=== PATIENT | female | born 1990 | race Caucasian/White ===

== ENCOUNTER 2025-01-03 10:00 | Emergency (ER) | payer OTHER, SELFPAY ==
--- OUTSIDE RECORDS SUMMARY | 2025-01-03 10:03 | XMS_ITS | Clinical Summary ---
Author Organization [facility] Address [address] [place] [id number] Care Team Providers Care Finance And Administration Manager Name Role Phone Josefina Gabriel MD Primary Care Provider Allergies Active Allergy Reactions Criticality Noted Date Comments Cat Dander Runny Nose,Itching 10/05/2020 Dog Dander Itching 10/05/2020 Medications hydrOXYzine HCL (ATARAX) 25 mg tabletIndication s:Anxiety Take 1-2 Tablets (25-50 mg) by mouth every 6 hours if needed for Itching. 25 Tablet 1 4 Active albuterol HFA (PRO-AIR; VENTOLIN; PROVENTIL) 90 mcg/actuation inhalerIndicatio ns:Asthma, unspecified asthma severity, unspecified whether complicated, unspecified whether persistent (HC) Inhale 1-2 Puffs by mouth every 4 hours while awake. 3 Each 1 4 Active fluticasone (50 mcg per actuation) nasal solution (FLONASE)Indicat ions:Allergic rhinitis, unspecified seasonality, unspecified trigger Inhale 1 [place] in both nostrils once daily. 16 g 3 4 Active fluticasone propion-salmeter oL (Wixela Inhub) 250-50 mcg/Dose diskus inhalerIndicatio ns:Asthma, unspecified asthma severity, unspecified whether complicated, unspecified whether persistent (HC) Inhale 1 Puff by mouth two times daily. 180 Each 3 4 Active sertraline 50 mg tabletIndication s:Acute adjustment disorder with mixed anxiety and depressed mood Take 1 Tablet (50 mg) by mouth once daily in the morning. 93 Tablet 3 5 Active Active Problems Problem Noted Date Diagnosed Date Cervical high risk HPV (human papillomavirus) te st positive 01/24/2019 Overview (09/15/2024): 01/2019 NIL/HPV+ 04/2021 NIL/HPV+ (16/18 negative) 05/2021 [place]: Negative 08/2024 NIL/HPV +, HPV 16/18 negative Provider Plan: Repeat pap in 1 year. If remains HPV + or abnormal cytology, then colposcopy. Unspecified asthma(493.90) 03/10/2007 Allergic rhinitis, cause unspecified 03/10/2007 Encounters Date Type Department Care Team Description 01/03/2025 8:30 AM CDT Telemedicine [facility] [address] [place] [phone] Lizabeth Rascon NP Telehealth (Swollen lymph nodes, acid reflux. Not able to eat or drink much/No vitals taken -virtual visit./) 01/03/2025 Travel 11/20/2024 7:00 AM CDT Office Visit [facility] [address] [place] [address] Josefina Gabriel MD Medication Management 11/20/2024 Travel 11/10/2024 2:00 PM CDT Telemedicine [facility] [address] [place] [address] Laura Light AUTO DAMAGE ESTIMATOR Telehealth; Trmt Plan (Treatment planning via telehealth) 10/20/2024 Refill [facility] [address] [place] [address] Josefina Gabriel MD Refill Request (Sertraline) from Last 3 Months Immunizations Immunization Administration Dates Next Due DTP 04/17/1994, 2,08/15/1990,06/06/1990, 01/28/1990 HIB HbOC (HibTITER) 03/20/1991,12/26/1990,1990 Hepatitis B (Peds) 07/03/1999,01/26/1999, 999 Human Papilloma Virus Vaccine 05/25/2009, 009,08/16/2008 Influenza, IIV3 (Age >=3 years) 07/19/2009,08/16 MMR 04/14/2002,03/20/1991 Oral Polio Vaccine 04/17/1994,01/26/1992, 990,01/28/1990 Td (Age >=7 Years) 09/29/2002 Tdap 03/25/2012 Family History Medical History Relation Name Comments Diabetes Mother Heart Disease Mother tetralogy of f allot, corrected Hyperlipidemia Paternal Grandmother Relation Name Status Comments Father Alive Mother Alive Paternal Grandmother Social History Tobacco Use Types Packs/Day Years Used Date Smoking Tobacco: Never Smokeless Tobacco: Never Tobacco Cessation:Counseling Given: Yes Alcohol Use Standard Drinks/Week Comments Yes 0 (1 standard drink = 0.6 oz pur e alcohol) infrequently PHQ-2 Answer Date Recorded PHQ-2 TOTAL SCORE 2 11/20/2024 Social Connections Answer Date Recorded Do you often feel lonely or isolated from those around you? 0 08/06/2024 Financial Resource Strain Answer Date R ecorded Difficulty of Paying Living Expenses 3 08/06/2024 Difficulty of Paying Living Expenses Not on file 08/06/2024 Food Insecurity Answer Date Recorded Do you worry your food will run out before you are able to buy more? 1 08/06/2024 Transportation Needs Answer Date Record ed Does lack of transportation keep you from medica l appointments? 1 08/06/2024 Does lack of transportation keep you from work, meetings or getting things that you need? 1 08/06/2024 Housing Stability Answer Date Recorded What is your housing situation today? 1 08/06/2024 Utilities Answer Date Recorded Do you have trouble paying f or utilities (for example, heat, electricity, water, phone)? 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 Gender Identity Not on file Sexual Orientation Not on file Occupation Industry Job Start Date Job End Date student and working Not on file Not on file Not on f ile Obstetrics History Para Term AB IAB SAB Ectopic Multiple Livin g Live Births 0 0 0 0 0 0 0 0 0 0 Last Filed Vital Signs Vital Sign Reading Time Taken Comments Blood Pressure 123/85 11/20/2024 7:06 AM CDT Pulse 77 11/20/2024 7:06 AM CDT Temperature 36.2 C (97.1 F) 11/20/2024 7:06 AM CDT Respiratory Rate 16 12/31/2013 7:30 PM CDT Oxygen Saturation 97% 11/20/2024 7:06 AM CDT Inhaled Oxygen Concentration - - Weight 83.2 kg (183 lb 6.4 oz) 11/20/2024 7:06 A M CDT Height 162 cm (5' 3.78) 11/20/2024 7:06 AM CDT Body Mass Index 31.7 11/20/2024 7:06 AM CDT Plan of Treatment Health Maintenance Due Date Last Done Comments Hepatitis C screening for age 18-79 12/16/2007 Tetanus booster 03/25/2022 03/25/2012, 09/29/2002 COVID-19 vaccine series ( season) 2024 Influenza Vaccine (Season Ended) 2025 07/19/2009, 08/16/2008 Pap test for age 21-65 09/03/2025 , 09/03/2024, 06/13/2021 (Verified in Care Everywhere or Patient Record), Additional history exists BMI (ht and wt on same day) for age 18+ 11/20/2025 11/20/2024, 08/06/2024, 05/15/2021, Additional history exists Depression screening for age 12+ 11/20/2025 11/20/2024, 08/06/2024, 05/16/2021, Additional history exists Tdap Completed 03/25/2012 HIV for age 15-65 Completed 06/13/2021 Pneumococcal series for age 6-49 Aged Out No longer eligible based on patient's age to complete this topic Procedures Procedure Name Priority Date/Time Associated Diagnosis Comments HPV HIGH RISK Routine 09/03/2024 7:46 AM MANAGER ENVIRONMENTAL SERVICES Screening for cervical cancer ANTI HIV 1/2 Routine 06/13/2021 8:45 AM CDT Routine screening for STI (sexually transmitted infection) from Last 3 Months or Most Recently Relevant to Health Maintenance Results * (ABNORMAL) HPV HIGH RISK (09/03/2024 7:46 AM MANAGER ENVIRONMENTAL SERVICES) TYPE 16 Negative Negative 09/07/2024 3:09 PM MANAGER ENVIRONMENTAL SERVICES [facility] TYPE 18 Negative Negative 09/07/2024 3:09 PM MANAGER ENVIRONMENTAL SERVICES [facility] OTHER HIGH RISK TYPES Positive(A) Negative 09/07/2024 3:09 PM MANAGER ENVIRONMENTAL SERVICES [facility] Other (Cervical) Non-Blood / Unknown 09/03/2024 7:46 AM MANAGER ENVIRONMENTAL SERVICES 09/03/2024 5:04 PM MANAGER ENVIRONMENTAL SERVICES Narrative [facility] - 09/07/2024 3:09 PM MANAGER ENVIRONMENTAL SERVICES Specimen is positive for the DNA of any one of, or combination of, the following high risk HPV types: 31, 33, 35, 39, 45, 51, 52, 56, 58, 59, 66, 68. HPV types 16 and 18 DNA were undetectable or below the pre-set threshold. Methodology: Cristiana Luis Manuel 4800 HPV Test us Josefina Gabriel MD MICROBIOLOGY Final Resul t [facility] [address] [place] [address], * ANTI HIV 1/2 (06/13/2021 8:45 AM CDT) HIV-1/HIV-2 ANTIBODY Non-Reacti ve Non-Reacti ve 06/13/2021 3:49 PM CDT [facility] Comment:HIV-1 p24 and HIV-1/ HIV-2 Ab not detected. Blood BLOOD SPECIMEN / Unknown Venipuncture / Unknown 06/13/2021 8:45 AM CDT 06/13/2021 8:45 AM CDT us Shayna Orozco MD SEND OUTS Final Result [facility] [address] [place] [address], from Last 3 Months or Most Recently Relevant to Health Maintenance Insurance [employer] Care Teams Finance And Administration Manager Relationship Specialty Start Date End Date Josfeina Gabriel MD [address] [place] [address] PCP - General Family Practice 08/06/24
[2025-01-03 10:09] VITALS: BP 118/80; PULSE 79; RESP 18; TEMP 36.8; O2SAT 97; BMI 29.1
--- NOTE | 2025-01-03 11:05 | CRLHL7_ITS ---
For Patients: As a result of the 21st Century Cures Act, medical imaging exams and procedure reports are released immediately into your electronic medical record. You may view this report before your referring provider. If you have questions, please contact your health care provider. INDICATION: sensation of swelling behind L tonsil, B/L tonsil swelling TECHNIQUE: CT of the neck with 75 mL Omnipaque 370 iodinated contrast agent IV. Coronal and sagittal reconstructions are included. COMPARISON: None FINDINGS: There is diffuse enlargement of the bilateral palatine tonsils compatible with acute tonsillitis. No abscess or drainable fluid collection. Mode [id number]-bp-[id number] rate transverse narrowing of the oropharyngeal airway. Multiple enlarged bilateral cervical level 2 and level 3 nodes likely reactive in etiology. Subcentimeter thyroid nodules. The oral cavity, nasopharyngeal, and hypopharyngeal mucosal spaces are normal. No periapical dental disease. The supraglottic, glottic and infraglottic larynx are normal. The airway including the trachea is normal and is patent. The parotid glands, submandibular and sublingual glands are normal in appearance. The vascular structures opacify normally with contrast material. 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 No suspicious lytic or blastic osseous lesions. 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 There is a 3.5 cm polyp versus retention cyst in the right maxillary sinus. Moderate mucosal thickening in the left maxillary sinus. Left nose piercing. Visualized orbital and intracranial contents are normal. Disc osteophyte complex at C6-7 results in mild spinal canal narrowing. Supraclavicular regions, mediastinum and soft tissues of the imaged chest wall are normal. Visualized portions of the upper lungs are clear. IMPRESSION: 1. Acute palatine tonsillitis. No tonsillar or peritonsillar abscess. Mild to moderate narrowing of the oropharyngeal airway. 2. Reactive cervical lymphadenopathy. 3. Incidental findings: Polyp versus retention cyst in the right maxillary sinus. 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 Subcentimeter thyroid nodules. Please note that all CT scans at this facility use dose modulation, iterative reconstruction, and/or weight-based dosing when appropriate to reduce radiation dose to as low as reasonably achievable. Dictated by Irineo Goyal MD @ 01/03/2025 11:54:43 AM (Electronically Signed)
--- OUTSIDE RECORDS SUMMARY | 2025-01-03 11:23 | XMS_ITS | Clinical Summary ---
Author Organization [email or web address] Address [address] [place] [id number] Care Team Providers Care Bi Data Architect Name Role Phone Josefina Gabriel MD Primary [...] rhinitis, unspecified seasonality, unspecified trigger Inhale 1 [place] in both nostrils once daily. 16 g [...] 01/2019 NIL/HPV+ 04/2021 NIL/HPV+ (16/18 negative) 05/2021 [place]: Negative 08/2024 NIL/HPV +, HPV 16/18 negative Provider Plan: Repeat pap in 1 year. If remains HPV + or abnormal cytology, then colposcopy. Unspecified asthma(493.90) 03/10/2007 Allergic rhinitis, cause unspecified 03/10/2007 Encounters Date Type Department Care Team Description 01/03/2025 8:30 AM CDT Telemedicine [facility] [address] [place] [phone] Lizabeth Rascon NP Telehealth (Swollen lymph nodes, acid reflux. 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 Gender Identity Not on file Sexual Orientation [...] HPV HIGH RISK Routine 09/03/2024 7:46 AM FINISHER TAILOR APPRENTICE Screening for cervical cancer ANTI HIV 1/2 Routine 06/13/2021 8:45 AM CDT Routine screening for STI (sexually transmitted infection) from Last 3 Months or Most Recently Relevant to Health Maintenance Results * (ABNORMAL) HPV HIGH RISK (09/03/2024 7:46 AM FINISHER TAILOR APPRENTICE) TYPE 16 Negative Negative 09/07/2024 3:09 PM FINISHER TAILOR APPRENTICE [facility] TYPE 18 Negative Negative 09/07/2024 3:09 PM FINISHER TAILOR APPRENTICE [facility] OTHER HIGH RISK TYPES Positive(A) Negative 09/07/2024 3:09 PM FINISHER TAILOR APPRENTICE [facility] Other (Cervical) Non-Blood / Unknown 09/03/2024 7:46 AM FINISHER TAILOR APPRENTICE 09/03/2024 5:04 PM FINISHER TAILOR APPRENTICE Narrative [facility] - 09/07/2024 3:09 PM FINISHER TAILOR APPRENTICE Specimen is positive for the DNA of any one of, or combination of, the following high risk HPV types: 31, 33, 35, 39, 45, 51, 52, 56, 58, 59, 66, 68. HPV types 16 and 18 DNA were undetectable or below the pre-set threshold. Methodology: Cristiana Luis Manuel 4800 HPV Test us Josefina Gabriel MD MICROBIOLOGY Final Resul t [facility] [address] [place] [address], * ANTI HIV 1/2 (06/13/2021 8:45 AM CDT) HIV-1/HIV-2 ANTIBODY Non-Reacti ve Non-Reacti ve 06/13/2021 3:49 PM CDT [facility] Comment:HIV-1 p24 and HIV-1/ HIV-2 Ab not detected. Blood BLOOD SPECIMEN / Unknown Venipuncture / Unknown 06/13/2021 8:45 AM CDT 06/13/2021 8:45 AM CDT us Shayna Orozco MD SEND OUTS Final Result [facility] [address] [place] [address], from Last 3 Months or Most Recently Relevant to Health Maintenance [place] [address] Care Teams Bi Data Architect Relationship Specialty Start Date End Date Josefina Gabriel MD [address] [place] [address] PCP - General Family Practice 08/06/24
--- NOTE | 2025-01-03 11:27 | ED.GENADULT ---
HPI - General Adult General Date Seen: 01/03/25 Chief complaint: Ear/Nose/Throat Problem Stated complaint: Lump In Throat Time Seen by Provider: 01/03/25 10:57 Source: patient Mode of arrival: ambulatory Limitations: no limitations History of Present Illness HPI narrative: Patient is a 34-year-old female presenting for concern of swelling to the right side of her throat behind the right tonsil. She states she was feeling sick last week with a sore throat and other viral symptoms but has been gradually getting better. She feels much better at this time and states the sore throat has improved significantly but feels like the right tonsil is swollen. She states she has had some difficulty eating but denies any difficulty breathing. Denies any your recent fevers or chills. No other symptoms noted other than just this concern about swelling to her right tonsil. Had strep throat last year but can not remember if it felt similar or not. No other concerns noted. Related Data Home Medications ?Medication ?Instructions ?Recorded ?Confirmed albuterol sulfate 90 mcg/actuation 1 - 2 puff inhalation PRN 01/03/25 aerosol inhaler (Ventolin HFA) fluticasone 250 mcg-salmeterol 50 1 ea inhalation BID 01/03/25 01/03/25 mcg/dose blistr powdr for inhalation fluticasone propionate 50 1 spray intranasal DAILY 01/03/25 01/03/25 mcg/actuation nasal spray,suspension sertraline 50 mg tablet 50 mg PO QAM 01/03/25 01/03/25 Allergies Allergy/AdvReac Type Severity Reaction Status Date / Time No Known Drug Allergies Allergy Verified 01/03/25 10:19 Review of Systems Status of ROS: Reports: 10 or more systems reviewed and unremarkable except as noted in History and below [facility] Social History Smoking Status: Never smoker Do you use any of these nicotine containing products: None How often do you have a drink containing alcohol: never AUDIT-C Alcohol total score: 0 Non-prescribed substance use: denies use Exam Narrative: Exam Narrative: Const: Well-nourished, Well-developed, in no distress Eyes: PERRL, no conjunctival injection, and symmetrical lids HENT: Atraumatic external nose and ears. Moist mucous membranes. Uvula midline, bilateral tonsillar swelling, tonsillar exudate seen. Neck: Symmetric, trachea midline, No thyromegaly. MSK:Extremities w/o deformity, Normal Active ROM Skin: Warm, Dry. No rashes or lesions. Neuro: Normal Muscle tone, No focal neurological deficits. Psych: Awake, Alert, & Oriented x3. Appropriate mood and affect. Const: Vital Signs, click to edit/add: Vital Signs - 24 hr 01/03/25 10:09 Temperature 98.3 F Pulse Rate [Pulse Oximeter] 79 Respiratory Rate 18 Blood Pressure [Ri ght Upper Arm] 118/80 Pulse Oximetry 97 Oxygen Delivery Me thod Room Air Course Vital Signs Vital signs: Initial Vital Signs Temperature 98.3 F 01/03/25 10:09 Temperature Source Temporal Artery Scan 01/03/25 10:09 Pulse Rate 79 01/03/25 10:09 Respiratory Rate 18 01/03/25 10:09 Blood Pressure 118/80 01/03/25 10:09 Blood Pressure Mean 92 01/03/25 10:09 Blood Pressure Position Supine 01/03/25 10:09 Pulse Oximetry 97 01/03/25 10:09 Oxygen Delivery Method Room Air 01/03/25 10:09 Vital Signs Temperature 98.3 F 01/03/25 10:09 Pulse Rate 79 01/03/25 10:09 Respiratory Rate 18 01/03/25 10:09 Blood Pressure 118/80 01/03/25 10:09 Pulse Oximetry 97 01/03/25 10:09 Oxygen Delivery Method Room Air 01/03/25 10:09 Temperature 98.3 F 01/03/25 10:09 Pulse Rate 79 01/03/25 10:09 Respiratory Rate 18 01/03/25 10:09 Blood Pressure 118/80 01/03/25 10:09 Pulse Oximetry 97 01/03/25 10:09 Oxygen Delivery Method Room Air 01/03/25 10:09 Medications Administered Medications: Generic Name Dose Route Start Last Admin Trade Name Freq PRN Reason Stop Dose Admin Sodium Chloride 1,000 mls @ 1,000 mls/hr 01/03/25 11:30 01/03/25 11:43 0.9 % Sodium Chloride 1000 Ml IV 01/03/25 12:29 1,000 mls/hr .Q1H HUGO Administration Discontinued Medications Generic Name Dose Route Start Last Admin Trade Name Freq PRN Reason Stop Dose Admin Ketorolac Tromethamine 15 mg 01/03/25 11:26 01/03/25 11:43 Ketorolac 15 Mg/Ml Inj IVP 01/03/25 11:27 15 mg ONCE ONE Administration Medical Decision Making MDM Narrative Medical decision making narrative: Patient is a 34-year-old female presenting for concern of swelling behind her right tonsil. Her tonsils look bilaterally swollen and uvula is midline. No obvious sign of a peritonsillar abscess and she does appear to be hemodynamically intact with no signs of airway compromise but considering her description and the appearance of the tonsils I do think it CT scan will be beneficial to make sure there is not any other abscess developing. I spoke to her about this and explained risks of CT scans and she is agreeable to the plan at this time. She is also feeling slightly dehydrated she has not been eating or drinking much and L of fluid was given along with some Toradol for pain. Order BMP, CBC and strep swab. Patient's lab work shows no concerning abnormalities. CT scans reviewed by myself and the radiologist shows no signs of abscess or other concerning findings. There is some mild to moderate narrowing of the oropharynx likely from the tonsillitis. I did inform her all the incidental findings. She is doing well this time. Strep test is negative. [place] test pending. But not force her to wait for the results of the mono test will discharge her home at this time. Will give a dose of dexamethasone. I did give her information to follow up with ENT if symptoms persist. Lab Data Labs: Lab Results 01/03/25 01/03/25 Range/Units 11:13 11:20 WBC 5.90 (4.50-11.00) K/uL RBC 4.48 (4.00-5.20) m/uL Hgb 13.6 (12.0-16.0) gm/dL Hct 41.2 (33.0-51.0) % MCV 92 (80-100) fL MCH 30 (26-34) pg MCHC 33 (32-36) gm/dL RDW Coeff of Sudhir 13.0 (11.5-15.5) % Plt Count 256 (140-440) K/uL Neut % (Auto) 65.3 (42.0-72.0) % Lymph % (Auto) 25.6 (20-44) % [place] % (Auto) 8.3 (0.0-11.0) % Eos % (Auto) 0.3 (0.0-7.0) % Baso % (Auto) 0.3 (0.0-3.0) % Neut # (Auto) 3.85 (1.7-7.0) K/uL Lymph # (Auto) 1.51 (0.90-2.90) K/uL [place] # (Auto) 0.50 (0.00-0.90) K/UL Eos # (Auto) 0.02 (0.00-0.50) K/uL Baso # (Auto) 0.02 (0.00-0.30) K/uL Abs Immat Gran (auto) 0.01 (0.00-0.30) K/uL Imm/Tot Granulo (auto) 0.2 % Group A Strep DNA NOT DETECTED (Not Detectd) Imaging Data CT scan back: Attestation: I have reviewed the pertinent imaging results. Radiologist's impression: 1. Acute palatine tonsillitis. No tonsillar or peritonsillar abscess. Mild to moderate narrowing of the oropharyngeal airway. 2. Reactive cervical lymphadenopathy. 3. Incidental findings: Polyp versus retention cyst in the right maxillary sinus. 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 Subcentimeter thyroid nodules. Please note that all CT scans at this facility use dose modulation, iterative reconstruction, and/or weight-based dosing when appropriate to reduce radiation dose to as low as reasonably achievable. Dictated by Irineo Goyal MD @ 01/03/2025 11:54:43 AM Discharge Plan Discharge Clinical Impression: Acute tonsillitis Qualifiers: Pharyngitis/tonsillitis etiology: unspecified etiology Qualified Code(s): J03.90 - Acute tonsillitis, unspecified Patient Disposition: Home, Self-Care Condition: Stable Instructions: Tonsillitis (ED) Additional Instructions: And p.m. we will call you with the results of the mono test if it is positive. If he continued to have symptoms worker swollen tonsils tried to follow-up with your primary care provider or ENT. The worse of incidental finding seen on your CT scan. These he my unlikely to cause you any issues the in the future. There is a polyp versus mucocele in the right maxillary sinus. If he develops issues with sinusitis in the future may be related to this. There is also signs of spine up if the occult the seen on your 1st cervical vertebrae. This is the most mild form of spina bifida and most patients have no symptoms. Patient feels of nodules on the thyroid. Do recommend following up with your PCP for multiple outpatient ultrasound. Prescriptions: No Action fluticasone propion-salmeterol 250-50 mcg/dose blister with device 1 ea INHALATION BID albuterol sulfate [Ventolin HFA] 90 mcg/actuation HFA aerosol inhaler 1 - 2 puff INHALATION PRN fluticasone propionate 50 mcg/actuation spray,suspension 1 spray INTRANASAL DAILY sertraline 50 mg tablet 50 mg PO QAM Follow Up/Referrals: Raegan Liang PA [Primary Care Provider] - Stand Alone Forms: [employer] Info Instructions
[2025-01-03 11:28] LABS: Basophils Absolute Auto 0.02 K/uL (0.00-0.30); Basophils Percent Auto 0.3 % (0.0-3.0); Eosinophils Absolute Auto 0.02 K/uL (0.00-0.50); Eosinophils Percent Auto 0.3 % (0.0-7.0); Hematocrit 41.2 % (33.0-51.0); Hemoglobin* 13.6 gm/dL (12.0-16.0); Immature Granulocytes Abs Auto 0.01 K/uL (0.00-0.30); Immature Granulocytes Pct Auto 0.2 %; Lymphocytes Absolute Auto 1.51 K/uL (0.90-2.90); Lymphocytes Percent Auto 25.6 % (20-44); Mean Corpuscular HGB Conc 33 gm/dL (32-36); Mean Corpuscular Hemoglobin 30 pg (26-34); Mean Corpuscular Volume 92 fL (80-100); Monocytes Percent Auto 8.3 % (0.0-11.0); Neutrophils Absolute Auto 3.85 K/uL (1.7-7.0); Neutrophils Percent Auto 65.3 % (42.0-72.0); Platelet Count* 256 K/uL (140-440); Red Blood Count 4.48 m/uL (4.00-5.20)
[2025-01-03 11:30] LABS: Slide Review Reflex No
[2025-01-03 11:39] LABS: Chloride* 103 mmol/L (96-114); Sodium* 141 mmol/L (135-149)
[2025-01-03 11:40] LABS: Potassium* 3.6 mmol/L (3.6-5.1)
[2025-01-03 11:42] LABS: Blood Urea Nitrogen* 19 mg/dL (5-24); Creatinine* 0.7 mg/dL (0.5-1.5); Est. Creatinine Clearance* 92.79; Estimated Glomerular Filt Rate 116 ml/min
[2025-01-03 11:43] LABS: Anion Gap 15 mEq/L (7-15); Calcium* 9.6 mg/dL (8.4-10.6); Carbon Dioxide* 23 mmol/L (20-32); Glucose* 101 mg/dL (60-115)
[2025-01-03] MEDS: 0.9 % SODIUM CHLORIDE 1000 ml 1,000 ML IV (11:43)
[2025-01-03] MEDS: KETOROLAC 15 MG/ML inj IVP (11:43)
[2025-01-03 11:52] LABS: Strep A DNA Probe* NOT DETECTED (Not Detectd)
[2025-01-03 12:15] LABS: Mono Screen* Negative (Negative)
[2025-01-03] MEDS: DEXAMETHASONE 10 MG/ML PF PO (12:18)
[2025-01-03 12:25] VITALS: BP 116/76; PULSE 84; RESP 16; RESP 18; O2SAT 100
== END 2025-01-03 12:23 | disposition home or self-care (01) ==
PROVIDERS: Emergency Provider Student in an Organized Health Care Education/Training Program; PCP Physician Assistant
DX: J03.90 Acute tonsillitis, unspecified (principal)
CPT/HCPCS: 36415; 70491; 80048; 85025; 86308; 87651; 96374; 99284; J1100; J1885; J7030; Q9967